=== PATIENT | female | born 1995 | race Two or more races ===

== ENCOUNTER → 2024-08-04 | Outpatient (CLI) | payer MEDICAID, SELFPAY ==
--- NOTE | 2024-08-04 16:24 | XR_ITS ---
Examination: Bilateral hands, 6 views. Technique: AP, Oblique, Lateral each hand total 6 views Date and time of exam: August 04, 2024 1628 hours INDICATIONS: Bilateral hand and wrist pain one year Findings: Mild juxta-articular bone demineralization No fracture or dislocation involving either hand No erosive or other significant arthritic change involving either hand No opaque foreign bodies IMPRESSION: Mild juxta-articular bone demineralization No erosive or other significant arthritic change involving either hand
--- NOTE | 2024-08-04 16:24 | XR_ITS ---
Examination: Bilateral wrists 6 views TECHNIQUE: AP oblique lateral each wrist total 6 views Exam date and time: August 04, 2024 1634 hours INDICATIONS: Bilateral wrist pain one year. FINDINGS: Mild osteopenia No fracture or dislocation involving either wrist No erosive or other significant arthritic change involving either wrist No avascular necrosis IMPRESSION: Mild osteopenia No erosive or other significant arthritic change involving either wrist
== END | disposition home or self-care (01) ==
LOC: CDIM 16:03
PROVIDERS: PCP Family Medicine
DX: M25.842 Other specified joint disorders, left hand (principal); M25.841 Other specified joint disorders, right hand; M85.88 Other specified disorders of bone density and structure, other site
CPT/HCPCS: 73110; 73130

== ENCOUNTER → 2024-12-15 | Outpatient (CLI) | payer MEDICAID, SELFPAY ==
--- NOTE | 2024-12-15 10:54 | XR_ITS ---
Examination: Complete OB ultrasound greater than 14 weeks Date and time of exam: December 15, 2024 1127 hours INDICATIONS: Amenorrhea 2 months Findings: Viable intrauterine single fetus with single amniotic sac presentation variable Cardiac motion 152 BPM Placenta posterior grade 1 Umbilical cord insertion seen Amniotic fluid adequate Cervix 3.4 cm Ovaries obscured by bowel gas. Composite estimated gestational age based on BPD, head circumference, abdominal circumference, femur length is 18 weeks 1 day Estimated weight 255.5 g. Survey of intracranial anatomy, spinal anatomy, abdominal anatomy, four-chamber heart performed with no abnormalities identified. Impression: Viable intrauterine gestation variable presentation Estimated gestational age 18 weeks 1 day.
== END | disposition home or self-care (01) ==
LOC: SDIM 10:43
PROVIDERS: Referring Provider Obstetrics & Gynecology; Visit Provider Obstetrics & Gynecology
DX: O99.891 Other specified diseases and conditions complicating pregnancy (principal); Z3A.18 18 weeks gestation of pregnancy
CPT/HCPCS: 76805

== ENCOUNTER → 2025-01-29 | Outpatient (CLI) | payer MEDICAID, SELFPAY ==
--- NOTE | 2025-01-29 15:20 | XR_ITS ---
Examination: age Limited TECHNIQUE: Limited transabdominal sonographic images pelvis Date and time: January 29, 2025 1550 hours INDICATIONS: Maternal obesity complicating FINDINGS: Viable intrauterine gestation breech presentation Cardiac motion 150 BPM Amniotic fluid index 14.6 cm Estimated weight 665 g IMPRESSION: Viable intrauterine gestation breech presentation
== END | disposition home or self-care (01) ==
LOC: SDIM 15:05
PROVIDERS: PCP Obstetrics & Gynecology; Referring Provider Obstetrics & Gynecology; Visit Provider Obstetrics & Gynecology
DX: O32.1XX0 Maternal care for breech presentation, not applicable or unspecified (principal); Z3A.00 Weeks of gestation of pregnancy not specified
CPT/HCPCS: 76815

== ENCOUNTER 2025-05-14 17:44 | Outpatient (CLI) | payer MEDICAID, SELFPAY ==
[2025-05-14] VITALS (9 sets, daily range): BP systolic 123; BP diastolic 80; PULSE 71–81; RESP 18–99; TEMP 37.2; O2SAT 98–100; BMI 36.3
--- NOTE | 2025-05-14 18:05 | XR_ITS ---
Examination: Biophysical profile, ultrasound Date and time of exam: May 14, 2025, 1836 hours INDICATIONS: Nonreactive NST in the doctor's office today Technique: Multiple transabdominal sonographic images of the pelvis abdomen obtained. Attention is directed to the breathing movement, gross body movement, amniotic fluid volume and tone. Findings: Amniotic fluid index 8.1 cm Total biophysical profile is 8 of 8. breathing movement is 2. Gross body movement is 2. tone is 2. Qualitative amniotic fluid volume is 2 Impression: Biophysical profile is 8 of 8.
== END 2025-05-14 18:57 | disposition home or self-care (01) ==
LOC: CNST 17:50 → S4SX 17:51
PROVIDERS: Referring Provider Obstetrics & Gynecology; Visit Provider Obstetrics & Gynecology
DX: Z36.89 Encounter for other specified antenatal screening (principal); Z34.83 Encounter for supervision of other normal pregnancy, third trimester; Z3A.39 39 weeks gestation of pregnancy
CPT/HCPCS: 59025; 76819